=== PATIENT | male | born 1975 | race Caucasian/White ===

== ENCOUNTER → 2020-03-04 13:11 | Outpatient (CLI) | payer BC ==
--- NOTE | ~2020-03-04 | ST ---
PATIENT:DANITA ORR MEDICAL RECORD: [id number] SEX: M LOCATION:[facility] ORDER #: ADMISSION DATE: 03/04/20 AGE OF PATIENT: 44 REFERRING PHYSICIAN: INTERPRETING PHYSICIAN: VASHTI MCLAIN MD DATE OF SERVICE: 03/04/2020 PROCEDURE: Treadmill stress test. Baseline ECG is normal. Exercised for 10 minutes on [place] protocol. Maximum heart rate 154 beats per minute, greater than 85% max predicted. No ECG changes of ischemia. No symptoms of ischemia. Normal blood pressure response to exercise. No arrhythmia is noted. Good exercise tolerance for age. TRANSINT:[id number] Voice Confirmation ID: [id number] DOCUMENT ID: [id number] VASHTI MCLAIN MD CC: [id number] DICTATION DATE: 03/05/20 142 AUDIT OFFICER: 03/06/20 0942 DEP CLI 03/04/20 [address] [id number] [place] [address]
--- NOTE | 2020-03-06 09:27 | EC ---
PATIENT:DANITA ORR DATE OF SERVICE: 03/04/20 SEX: M MEDICAL RECORD: [id number] DATE OF : 71 [facility] AGE OF PATIENT: 44 ADMISSION DATE: 03/04/20 REFERRING PHYSICIAN: INTERPRETING PHYSICIAN: VASHTI MCLAIN MD ECHOCARDIOGRAM REPORT ECHO CHARGES 4 ECHO COMPLETE Date: 03/04/20 CLINICAL DIAGNOSIS: HEART MURMUR ECHOCARDIOGRAPHIC MEASUREMENTS (adult normal given) AC root (d.<3.7cm) 3.2 cm LV Septum d (<1.2 cm> 1.4 cm Valve Excursion 1.4 cm LV Septum (systole) 1.8 cm Left Atria (s.<4.0cm> 3.4 cm LVPW d(<1.2cm) 1.4 cm RV (d.<2.3cm) 3.9 cm LVPW (sytole) 1.9 cm LV diastole(<5.6CM) 4.8 cm MV E-F(>70mm/sec) cm LV systole 2.6 cm LVOT Diameter 1.9 cm MV exc.(>10mm) 1.4 cm Est.ejection fraction (50-75%) % DOPPLER: LVIT cm/sec A 96.0 cm/sec E 104.0 cm/sec LA cm/sec RVSP 17 mmHg LVOT 130 cm/sec AOP1/2T m/s Asc. Ao 145 cm/sec RVOT 86 cm/sec RA cm/sec PA 153 cm/sec AV Gradient Peak 8.41 mmHg AV Mean 4.63 mmHg AV Area 2.5 cm MV Gradient Peak 5.99 mmHg MV Mean 2.86 mmHg MV Area cm COMMENTS: Marketing Support Manager: 2 BAILEE ALMANZAR Body Sander: 3 Dr. Fritz TAPE# PACS Pericardial Effusion N DATE OF SERVICE: Adequate 2D, color flow imaging, spectral Doppler, and M-Mode. Borderline LVH. LV internal dimension is normal. Wall motion is normal. EF is greater than or equal to 55%. Aortic valve is tricuspid. No evidence of stenosis by Doppler interrogation. Left atrium is normal at 3.4 cm. Mitral valve shows no prolapse. Trace MR. Right-sided chambers are grossly normal. Trace TR. ECHOCARDIOGRAM REPORT [id number] DANITA ORR TRANSINT:[id number] Voice Confirmation ID: [id number] DOCUMENT ID: [id number] VASHTI MCLAIN MD at 0927 CC: [id number] DICTATION DATE: 03/05/20 1535 ENERGY CONSERVATION SPECIALIST: 03/05/20 2241 DEP CLI 03/04/20 [place] [id number] [place] [id number]
== END | disposition home or self-care (01) ==
LOC: D.HCCECHO 13:11
PROVIDERS: ATTEND Internal Medicine Interventional Cardiology
DX: R00.2 Palpitations (principal); R01.1 Cardiac murmur, unspecified